=== PATIENT | female | born 1985 | race Asian ===

== ENCOUNTER 2022-04-07 14:32 | Emergency (ER) | payer OTHER ==
[~2022-04-07] VITALS: Ht 175.3 cm; Wt 84.4 kg
[2022-04-07 14:40] VITALS: TEMP 98.4
[2022-04-07 15:12] LABS: PLATELET COUNT 276 K/uL (152-353)
[2022-04-07 15:46] LABS: POTASSIUM 4.2 mmol/L (3.6-5.2)
[2022-04-07 16:41] VITALS: BP 118/68
== END 2022-04-07 16:42 | disposition home or self-care (01) ==
LOC: ED 14:32
PROVIDERS: Emergency Medicine
DX: G43.909 Migraine, unspecified, not intractable, without status migrainosus (principal)
CPT/HCPCS: 80053; 81002; 81025; 85027; 87502; 96372; 99283; J1885

== ENCOUNTER 2022-07-24 15:22 | Emergency (ER) | payer OTHER ==
[~2022-07-24] VITALS: Ht 175.3 cm; Wt 112.9 kg
[2022-07-24 15:27] VITALS: BP 134/78; TEMP 98.5
== END 2022-07-24 15:48 | disposition home or self-care (01) ==
LOC: ED 15:22
DX: O21.0 Mild hyperemesis gravidarum (principal); Z3A.00 Weeks of gestation of pregnancy not specified
CPT/HCPCS: 99281

== ENCOUNTER 2022-09-27 11:01 | Emergency (ER) | payer OTHER ==
[~2022-09-27] VITALS: Ht 175.3 cm; Wt 119.7 kg
[2022-09-27 11:22] VITALS: BP 146/88; TEMP 97.6
== END 2022-09-27 11:30 | disposition home or self-care (01) ==
LOC: ED 11:01
DX: O21.9 Vomiting of pregnancy, unspecified (principal); O98.511 Other viral diseases complicating pregnancy, first trimester; Z3A.09 9 weeks gestation of pregnancy
CPT/HCPCS: 99281